=== PATIENT | male | born 1985 | race Caucasian/White ===

== ENCOUNTER 2017-12-03 21:35 | Emergency (ER) | payer MEDICAID ==
[~2017-12-03 21:35] MED LIST: ALBU8.5H8 INH; CHLO25CA10 PO; NO HOME MEDS
== END 2017-12-03 22:24 | disposition left against medical advice (07) ==
LOC: ER 21:36
DX: Z53.21 Procedure and treatment not carried out due to patient leaving prior to being seen by health care provider (principal)

== ENCOUNTER 2017-12-19 15:34 | Emergency (ER) | payer MEDICAID ==
[2017-01-29 01:16] VITALS: BP_DIAS 77
[2017-12-19 15:50] VITALS: BP_SYST 149
== END 2017-12-19 16:15 | disposition left against medical advice (07) ==
LOC: ER 15:34
DX: Z53.21 Procedure and treatment not carried out due to patient leaving prior to being seen by health care provider (principal)

== ENCOUNTER 2020-02-13 06:43 | Inpatient (IN) | payer MEDICAID ==
[~2020-02-13] VITALS: Ht 175.3 cm; Wt 79.5 kg
[2020-02-13] MEDS ORDERED: sodium bicarbonate (8.4%) 1 mEq/ml syringe IV ONE (07:20)
[2020-02-13] MEDS ORDERED: calcium chloride 100 MG/1 ML inj IV ONE (07:20)
[2020-02-13 07:48] LABS: BASOPHILS # (AUTO) 0.1 X10'3 (0-0.2); BASOPHILS % (AUTO) 0.4 % (0-1); EOSINOPHILS # (AUTO) 0.1 X10'3 (0-0.9); EOSINOPHILS % (AUTO) 0.8 % (0-6); HEMATOCRIT 43.9 % (42.0-52.0); HEMOGLOBIN 15.1 g/dl (14.0-17.9); LYMPHOCYTES # (AUTO) 1.4 X10'3 (1.1-4.8); LYMPHOCYTES % (AUTO) 8.6 % (21-51); MEAN CORPUSCULAR HEMOGLOBIN 34.1 PG (27.0-31.0); MEAN CORPUSCULAR HGB CONC 34.3 g/dL (33.0-36.5); MEAN CORPUSCULAR VOLUME 99.4 FL (78-98); MONOCYTES # (AUTO) 2.6 X10'3 (0-0.9); MONOCYTES % (AUTO) 15.5 % (2-12); NEUTROPHILS # (AUTO) 12.5 X10'3 (1.8-7.7); NEUTROPHILS % (AUTO) 74.7 % (42-75); PLATELET COUNT 257 X10'3 (140-440); RED BLOOD COUNT 4.42 X10'6 (4.70-6.10); RED CELL DISTRIBUTION WIDTH 12.8 % (11.5-14.5); WHITE BLOOD COUNT 16.7 X10'3 (4.5-11.0)
--- NOTE | 2020-02-13 07:55 | NUR ---
ECHO AT BEDSIDE
[2020-02-13] MEDS ORDERED: iohexol 350MG/ML 100ml bottle IV ONE (07:57)
[2020-02-13 08:13] LABS: ALANINE AMINOTRANSFERASE 198 U/L (12-78); ALBUMIN 3.4 G/DL (3.4-5.0); ALBUMIN/GLOBULIN RATIO 0.8 (1.1-1.5); ALKALINE PHOSPHATASE 65 IU/L (46-116); ANION GAP 6 (8-16); ASPARTATE AMINO TRANSFERASE 52 U/L (10-37); BILIRUBIN,TOTAL 0.7 MG/DL (0.1-1.0); BLOOD UREA NITROGEN 13 MG/DL (7-18); BUN/CREATININE RATIO 19.4 (5.4-32.0); CHLORIDE 103 MMOL/L (99-107); CREATININE 0.67 MG/DL (0.60-1.10); GLUCOSE 104 MG/DL (70-104); POTASSIUM 3.9 MMOL/L (3.5-5.1); SODIUM 138 MMOL/L (135-145); TOTAL CARBON DIOXIDE 28.6 MMOL/L (24-32); TOTAL PROTEIN 7.6 G/DL (6.4-8.2); eGFR > 90 ML/MIN
--- NOTE | 2020-02-13 08:23 | NUR ---
Pt transported to CT via rpony with tech.
[2020-02-13 08:37] LABS: C-REACTIVE PROTEIN 3.04 MG/DL (0.0-0.5)
[2020-02-13 09:04] LABS: PLATELET ESTIMATE NORMAL; TOTAL CELLS COUNTED 100
[2020-02-13 10:34] LABS: URINE AMPHETAMINE SCREEN NEGATIVE (Neg); URINE BARBITUATE SCREEN NEGATIVE (Neg); URINE BENZODIAZEPINES SCREEN NEGATIVE (Neg); URINE CANNABINOID SCREEN POSITIVE (Neg); URINE COCAINE SCREEN NEGATIVE (Neg); URINE METHADONE SCREEN NEGATIVE (Neg); URINE OPIATE SCREEN NEGATIVE (Neg); URINE PHENCYCLIDINE SCREEN NEGATIVE (Neg)
[2020-02-13] MEDS ORDERED: normal saline 1000ML IV soln IVB ONE (11:35)
[2020-02-13] MEDS ORDERED: ondansetron/PF 4mg/2ml inj IV PRN ×2 (11:35→12:45)
[2020-02-13] MEDS: morphine 4 MG/ML inj SYRINge IV PRN ×2 (11:47→23:40)
[2020-02-13 11:55] LABS: LIPASE 71 U/L (73-393)
[2020-02-13] MEDS ORDERED: acetaminophen 325mg tablet PO PRN (12:45)
[2020-02-13] MEDS ORDERED: HYDROcodone/acetaminophen 5mg/325mg tablet PO PRN (12:45)
[2020-02-13] MEDS ORDERED: mag hydrox/Alum hydrox/simeth 30ml oral suspension PO PRN (12:45)
[2020-02-13] MEDS ORDERED: potassium CL 10mEq/100ml bag 100 ML IV PRN ×2 (12:45)
[2020-02-13] MEDS ORDERED: HYDROcodone/acetaminophen 10/325mg tab PO PRN (12:45)
[2020-02-13] MEDS ORDERED: magnesium 2GM in 50ml NS 50 ML IV PRN (12:45)
[2020-02-13] MEDS ORDERED: magnesium Cl slow-release 64mg tablet PO PRN (12:45)
[2020-02-13] MEDS ORDERED: magnesium hydroxide 30ml (MOM) UD suspension PO PRN (12:45)
[2020-02-13] MEDS ORDERED: diphenhydrAMINE 25mg capsule PO PRN (12:45)
[2020-02-13] MEDS ORDERED: levoFLOXACIN 750MG TABLET PO ONE (12:45)
[2020-02-13] MEDS ORDERED: potassium Cl 20 mEq SR tablet PO PRN ×2 (12:45)
[2020-02-13] MEDS ORDERED: magnesium 4gm in 100ml NS 100 ML IV PRN (12:45)
[2020-02-13] MEDS ORDERED: LORazepam 1 MG tablet PO PRN (13:10)
[2020-02-13] MEDS ORDERED: LORazepam 2 mg/ml vial IV PRN (13:10)
[2020-02-13] MEDS: predniSONE 20 mg tablet PO SCH ×2 (13:18→21:13)
--- NOTE | 2020-02-13 13:30 | NUR ---
Received patient report from CRISTOPHER Juarez from ED. Awaiting patient arrival to room 3028X.
--- NOTE | 2020-02-13 14:00 | NUR ---
Patient arrived to room 3025B via gurney. Patient vital signs temp. 99F, HR 70, RR 20, 95% on room air, BP 145/83, and pain 6/10. Bed locked and lowered, nonskid socks on, call light in reach, and in no acute distress.
[2020-02-13 14:12] VITALS: BP 145/83
[2020-02-13 18:00] VITALS: BP 129/73
--- NOTE | 2020-02-13 18:17 | NUR ---
Problems reprioritized. Patient report given, questions answered & plan of care reviewed with CRISTOPHER Baker. Patient stable at transfer of care.
--- NOTE | 2020-02-13 18:20 | NUR ---
Patient in room PCU 3025. I have received report from CRISTOPHER Rousseau and had the opportunity to ask questions and assume patient care.
[2020-02-13] MEDS: K and/or MAG REPLACEMENT MC SCH (18:24)
[2020-02-13 22:00] VITALS: BP 117/68
[2020-02-14 02:00] VITALS: BP 124/71
[2020-02-14 05:45] LABS: EOSINOPHILS % (AUTO) 0 % (0-6); MEAN PLATELET VOLUME 8.6 FL (7.4-10.4); PLATELET COUNT 295 X10'3 (140-440)
[2020-02-14 05:49] LABS: BASOPHILS # (AUTO) 0.2 X10'3 (0-0.2); BASOPHILS % (AUTO) 0.8 % (0-1); HEMATOCRIT 43.9 % (42.0-52.0); HEMOGLOBIN 15.2 g/dl (14.0-17.9); LYMPHOCYTES # (AUTO) 0.8 X10'3 (1.1-4.8); MEAN CORPUSCULAR HEMOGLOBIN 34.5 PG (27.0-31.0); MEAN CORPUSCULAR HGB CONC 34.7 g/dL (33.0-36.5); MEAN CORPUSCULAR VOLUME 99.3 FL (78-98); MONOCYTES # (AUTO) 1.4 X10'3 (0-0.9); MONOCYTES % (AUTO) 6.9 % (2-12); NEUTROPHILS # (AUTO) 18.5 X10'3 (1.8-7.7); NEUTROPHILS % (AUTO) 88.3 % (42-75); RED BLOOD COUNT 4.42 X10'6 (4.70-6.10); RED CELL DISTRIBUTION WIDTH 12.6 % (11.5-14.5); WHITE BLOOD COUNT 20.9 X10'3 (4.5-11.0)
[2020-02-14 06:00] LABS: ALANINE AMINOTRANSFERASE 143 U/L (12-78); ALBUMIN/GLOBULIN RATIO 0.6 (1.1-1.5); ALKALINE PHOSPHATASE 65 IU/L (46-116); ANION GAP 4 (8-16); ASPARTATE AMINO TRANSFERASE 30 U/L (10-37); BILIRUBIN,TOTAL 0.6 MG/DL (0.1-1.0); BLOOD UREA NITROGEN 16 MG/DL (7-18); BUN/CREATININE RATIO 19.5 (5.4-32.0); CALCIUM 9.3 MG/DL (8.5-10.1); CHLORIDE 103 MMOL/L (99-107); CREATININE 0.82 MG/DL (0.60-1.10); GLUCOSE 130 MG/DL (70-104); LIPASE 85 U/L (73-393); PHOSPHORUS 4.1 MG/DL (2.3-4.5); POTASSIUM 4.3 MMOL/L (3.5-5.1); SODIUM 138 MMOL/L (135-145); TOTAL CARBON DIOXIDE 30.7 MMOL/L (24-32); TOTAL PROTEIN 8.2 G/DL (6.4-8.2); eGFR > 90 ML/MIN
--- NOTE | 2020-02-14 06:27 | NUR ---
Patient in room PCU 3025. I have received report from CRISTOPHER Baker and had the opportunity to ask questions and assume patient care. Patient asleep in bed and in no acute distress.
[2020-02-14 07:00] VITALS: BP 129/75
--- NOTE | 2020-02-14 07:31 | NUR ---
Paged Dr. Sood regarding getting sputum and blood cultures ordered. PAGER ID: [phone] MESSAGE: [phone]. Kulwinder Waite. Would you like me to order sputum and blood cultures? Thank you. Onelia NICHOLAS x [phone]
[2020-02-14] MEDS ORDERED: folic acid 1mg tablet PO SCH (08:00)
[2020-02-14] MEDS ORDERED: multivitamins, therapeutics tablet PO SCH (08:00)
[2020-02-14] MEDS: K and/or MAG REPLACEMENT MC SCH (08:00)
[2020-02-14] MEDS ORDERED: thiamine 100mg tablet PO SCH (08:00)
[2020-02-14] MEDS ORDERED: nicotine 14mg patch - 24hr TD SCH (08:00)
[2020-02-14] MEDS: predniSONE 20 mg tablet PO SCH (09:09)
[2020-02-14] MEDS ORDERED: levoFLOXACIN 750MG TABLET PO SCH (11:00)
[2020-02-14] MEDS ORDERED: PRED20TA PO (13:00)
[2020-02-14] MEDS ORDERED: LEVO750T46 PO (13:00)
[2020-02-14] MEDS ORDERED: NICO-631 TD (13:00)
--- NOTE | 2020-02-14 13:30 | NUR ---
Patient stable for discharge per MD orders. All discharge instructions reviewed and all questions answered appropriately. Belongings collected and sent with patient. Patient will call to make follow up appointment with PCP. New prescriptions called in to [facility]. PIV discontinued and cannula intact. panel monitor discontinued. Patient ambulated to lobby and left via private vehicle.
== END 2020-02-14 13:30 | disposition home or self-care (01) | DRG 207 ==
LOC: ER 06:43 → ED HOLD 12:42 → PCU 3S 14:05
PROVIDERS: ADMIT Family Medicine; ATTEND Family Medicine
DX: I30.9 Acute pericarditis, unspecified (principal); J18.9 Pneumonia, unspecified organism; F17.210 Nicotine dependence, cigarettes, uncomplicated; R70.0 Elevated erythrocyte sedimentation rate; R74.0 Nonspecific elevation of levels of transaminase and lactic acid dehydrogenase [LDH]; R79.82 Elevated C-reactive protein (CRP); D72.823 Leukemoid reaction; F12.10 Cannabis abuse, uncomplicated; Z80.1 Family history of malignant neoplasm of trachea, bronchus and lung; Z83.3 Family history of diabetes mellitus; Z88.0 Allergy status to penicillin; Z71.6 Tobacco abuse counseling; Z72.89 Other problems related to lifestyle
CPT/HCPCS: 36415; 71045; 71275; 74174; 80053; 80305; 82948; 83605; 83690; 83735; 84100; 84484; 85025; 85651; 86140; 87040; 87081; 93005; 93306; 96361; 96374; 96375; 99285; G0378; J2270; J2405; J7030; J7512; Q9967

== ENCOUNTER 2021-06-16 10:54 | Day surgery (SDC) | payer MEDICAID ==
[2021-06-13 15:10] LABS: BASOPHILS % (AUTO) 0.5 % (0-1); EOSINOPHILS # (AUTO) 0.2 X10'3 (0-0.9); EOSINOPHILS % (AUTO) 2.7 % (0-6); LYMPHOCYTES # (AUTO) 1.7 X10'3 (1.1-4.8); MEAN CORPUSCULAR HEMOGLOBIN 33.8 PG (27.0-31.0); MEAN CORPUSCULAR HGB CONC 34.9 g/dL (33.0-36.5); MEAN CORPUSCULAR VOLUME 96.9 FL (78-98); MEAN PLATELET VOLUME 8.7 FL (7.4-10.4); MONOCYTES # (AUTO) 1.1 X10'3 (0-0.9); MONOCYTES % (AUTO) 17.7 % (2-12); NEUTROPHILS # (AUTO) 3.4 X10'3 (1.8-7.7); NEUTROPHILS % (AUTO) 52.1 % (42-75); PRE OP PLATELET COUNT 204 X10'3 (140-440); RED BLOOD COUNT 4.44 X10'6 (4.70-6.10)
[2021-06-13 15:29] LABS: ALBUMIN 3.6 G/DL (3.4-5.0); ALKALINE PHOSPHATASE 62 IU/L (46-116); BLOOD UREA NITROGEN 19 MG/DL (7-18); BUN/CREATININE RATIO 26.4 (5.4-32.0); CALCIUM 8.2 MG/DL (8.5-10.1); CHLORIDE 106 MMOL/L (99-107); CREATININE 0.72 MG/DL (0.60-1.10); PRE OP ALT 58 U/L (30-65); PRE OP ANION GAP 7 (8-16); PRE OP AST 24 U/L (10-37); PRE OP BILIRUB, TOTAL 0.2 MG/DL (0.0-1.0); PRE OP GLUCOSE 93 MG/DL (70-104); PRE OP POTASSIUM 3.8 MMOL/L (3.4-5.1); PRE OP SODIUM 140 MMOL/L (135-145); TOTAL CARBON DIOXIDE 26.9 MMOL/L (24-32); TOTAL PROTEIN 7.2 G/DL (6.4-8.2); eGFR > 90 ML/MIN
[2021-06-13 15:31] LABS: PLATELET ESTIMATE NORMAL; TOTAL CELLS COUNTED 100
[~2021-06-16] VITALS: Ht 175.3 cm; Wt 80.0 kg
[~2021-06-16 10:54] MED LIST changes: -ALBU8.5H8 INH; -CHLO25CA10 PO; +CLINDAMYCIN/D5W 900mg/50ml 50 ML IV ONE; +famotidine 20mg tablet PO ONE; +ringers solution, lacted 1,000 ML IV SCH; +vancomycin/NS 1 GM ADD-VANTAGE 250 ML X 1 DOSE IV ONE
[2021-06-16 11:23] VITALS: BP 128/82
[2021-06-16] MEDS ORDERED: triamcinolone acetonide 40mg/ml inj ONE (14:19)
[2021-06-16] MEDS ORDERED: BUPIVAcaine 0.5% inj/PF 60 ML ONE (14:19)
[2021-06-16] MEDS ORDERED: meperidine/PF 25mg/ml syringe IV PRN ×3 (15:35)
[2021-06-16] MEDS ORDERED: morphine 2 MG/ML inj. syringe IV PRN (15:35)
[2021-06-16] MEDS ORDERED: ondansetron/PF 4mg/2ml inj IV PRN (15:35)
[2021-06-16] MEDS ORDERED: proCHLORperazine 10 MG/2 ml inj IV PRN (15:35)
[2021-06-16] MEDS ORDERED: morphine 4 MG/ML inj SYRINge IV PRN (15:35)
[2021-06-16] MEDS ORDERED: ringers solution, lacted 1,000 ML IV SCH (15:35)
[2021-06-16] MEDS ORDERED: midazolam 1 mg/ML 2ml injection ONE (15:51)
[2021-06-16] MEDS ORDERED: fentaNYL /PF 50mcg/ml 5ml ampule ONE (15:52)
[2021-06-16] MEDS ORDERED: propofol inj 20 ML IV ONE (16:20)
[2021-06-16] MEDS ORDERED: acetaminophen 1,000mg/100ml IV 100 ML IV ONE (16:20)
[2021-06-16] MEDS ORDERED: ondansetron/PF 4mg/2ml inj ONE (16:20)
[2021-06-16] MEDS ORDERED: LIDOcaine 2% (20mg/ml) 5ml vial ONE (16:20)
[2021-06-16] MEDS ORDERED: dexamethasone sod phosphate 4mg/ml inj. ONE (16:20)
[2021-06-16] MEDS ORDERED: glycopyrrolate 0.2mg/ml inj ONE (16:21)
[2021-06-16] MEDS ORDERED: sevoflurane 250ml liquid IH ONE (16:30)
[2021-06-16] MEDS ORDERED: ketorolac trometh. 30mg/ml inj. ONE (17:42)
[2021-06-16 17:52] VITALS: BP 111/61
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
[2021-06-16 18:02] VITALS: BP 115/65
[2021-06-16 18:12] VITALS: BP 116/64
[2021-06-16 18:22] VITALS: BP 116/67
[2021-06-16 18:32] VITALS: BP 121/75
--- NOTE | 2021-06-16 18:42 | NUR ---
ALL DISCHARGE CRITERIA HAS BEEN MET. VSS, PAIN AT A TOLERABLE LEVEL, VOIDING AND ABLE TO SAFELY AMBULATE AND TRANSFER SELF. IV TAKEN OUT WITHOUT ANY COMPLICATIONS. ALL DISCHARGE INSTRUCTIONS COVERED WITH PATIENT AND ALL QUESTIONS ANSWERED. PATIENT TAKEN OUT VIA WHEELCHAIR TO PERSONAL VEHICLE WHERE FAMILY/FRIEND DROVE PATIENT HOME. Addendum: 06/16/21 at 1904 by Kevin Patricia RN, RN Amended: Links added.
== END 2021-06-16 18:42 | disposition home or self-care (01) ==
LOC: PAS 10:54
PROVIDERS: ATTEND Orthopaedic Surgery
DX: S83.231A Complex tear of medial meniscus, current injury, right knee, initial encounter (principal); S83.232A Complex tear of medial meniscus, current injury, left knee, initial encounter; S83.271A Complex tear of lateral meniscus, current injury, right knee, initial encounter; S83.272A Complex tear of lateral meniscus, current injury, left knee, initial encounter; M17.0 Bilateral primary osteoarthritis of knee; M94.261 Chondromalacia, right knee; M94.262 Chondromalacia, left knee; Z88.0 Allergy status to penicillin; Z88.1 Allergy status to other antibiotic agents; Z72.89 Other problems related to lifestyle; E66.8 Other obesity; Z68.26 Body mass index [BMI] 26.0-26.9, adult; F17.290 Nicotine dependence, other tobacco product, uncomplicated; Z20.822 Contact with and (suspected) exposure to COVID-19; Z79.899 Other long term (current) drug therapy; X58.XXXA Exposure to other specified factors, initial encounter; Y93.89 Activity, other specified; Y92.89 Other specified places as the place of occurrence of the external cause; Y99.8 Other external cause status
CPT/HCPCS: 29873; 29879; 29880; 80053; 82948; 85025; 87635; C9803; J0131; J1100; J1885; J2001; J2250; J2405; J2704; J3010; J3301; J3370; Z7506; Z7508; Z7512; 85007; A4215; A4618; A6250; A6449; A6455; A7000; J3490; J7120

== ENCOUNTER → 2021-08-14 | Emergency (ER) | payer MEDICAID ==
[~2021-08-14] VITALS: Ht 177.8 cm; Wt 84.1 kg
[~2021-08-14] MED LIST changes: -CLINDAMYCIN/D5W 900mg/50ml 50 ML IV ONE; -famotidine 20mg tablet PO ONE; -ringers solution, lacted 1,000 ML IV SCH; -vancomycin/NS 1 GM ADD-VANTAGE 250 ML X 1 DOSE IV ONE
[2021-08-14 03:34] VITALS: BP 125/83
== END ==
LOC: ER 02:50
DX: Z02.89 Encounter for other administrative examinations (principal); V98.8XXA Other specified transport accidents, initial encounter; Y93.89 Activity, other specified; Y92.89 Other specified places as the place of occurrence of the external cause; Y99.8 Other external cause status
CPT/HCPCS: 99283

== ENCOUNTER 2022-07-26 02:45 | Emergency (ER) | payer MEDICAID ==
[~2022-07-26] VITALS: Ht 177.8 cm; Wt 77.3 kg
[2022-07-26] MEDS ORDERED: NALO4SPR BOTHNARES (05:20)
[2022-07-26 05:32] VITALS: BP 119/72
== END 2022-07-26 05:35 | disposition home or self-care (01) ==
LOC: ER 02:46
DX: T40.601A Poisoning by unspecified narcotics, accidental (unintentional), initial encounter (principal); R11.10 Vomiting, unspecified; F17.200 Nicotine dependence, unspecified, uncomplicated; F15.90 Other stimulant use, unspecified, uncomplicated; F19.90 Other psychoactive substance use, unspecified, uncomplicated; Z72.89 Other problems related to lifestyle; Z88.0 Allergy status to penicillin; Z79.899 Other long term (current) drug therapy; Y92.89 Other specified places as the place of occurrence of the external cause
CPT/HCPCS: 99283

== ENCOUNTER 2023-09-26 23:33 | Emergency (ER) | payer MEDICAID ==
[~2023-09-26] VITALS: Ht 175.3 cm; Wt 83.4 kg
[~2023-09-26 23:33] MED LIST changes: +NALO4SPR BOTHNARES
[2023-09-27 01:01] VITALS: TEMP 99.3
[2023-09-27] MEDS ORDERED: ibuprofen tablet 400 MG TABLET PO ONE (01:05)
[2023-09-27] MEDS ORDERED: ibuprofen tablet 400 MG TABLET ONE (01:10)
[2023-09-27] MEDS ORDERED: aspirin 81mg tab.chew PO ONE (01:15)
--- NOTE | 2023-09-27 01:24 | NUR ---
PT VINOD UPGRADED TO LEVEL 2 DUE TO VITALS, EKG PRESENTATION
[2023-09-27 01:54] LABS: BASOPHILS % (AUTO) 0.1 % (0-1); EOSINOPHILS % (AUTO) 0 % (0-6); HEMATOCRIT 43.2 % (42.0-52.0); HEMOGLOBIN 14.7 g/dl (14.0-17.9); LYMPHOCYTES # (AUTO) 0.9 X10'3 (1.1-4.8); LYMPHOCYTES % (AUTO) 4.7 % (21-51); MEAN CORPUSCULAR HEMOGLOBIN 34.2 PG (27.0-31.0); MEAN CORPUSCULAR HGB CONC 34.1 g/dL (33.0-36.5); MEAN CORPUSCULAR VOLUME 100.4 FL (78-98); MEAN PLATELET VOLUME 8.7 FL (7.4-10.4); MONOCYTES # (AUTO) 3.4 X10'3 (0-0.9); MONOCYTES % (AUTO) 18.2 % (2-12); NEUTROPHILS # (AUTO) 14.4 X10'3 (1.8-7.7); PLATELET COUNT 203 X10'3 (140-440); RED CELL DISTRIBUTION WIDTH 12.9 % (11.5-14.5); WHITE BLOOD COUNT 18.8 X10'3 (4.5-11.0)
[2023-09-27 02:14] LABS: ALANINE AMINOTRANSFERASE 34 U/L (12-78); ALBUMIN 3.1 G/DL (3.4-5.0); ALBUMIN/GLOBULIN RATIO 0.7 (1.1-1.5); ALKALINE PHOSPHATASE 55 IU/L (46-116); ANION GAP 11 (8-16); ASPARTATE AMINO TRANSFERASE 15 U/L (10-37); BILIRUBIN,TOTAL 1.1 MG/DL (0.1-1.0); BLOOD UREA NITROGEN 8 MG/DL (7-18); BUN/CREATININE RATIO 12.5 (10.0-20.0); CALCIUM 8.4 MG/DL (8.5-10.1); CHLORIDE 94 MMOL/L (99-107); CREATININE 0.64 MG/DL (0.60-1.10); GLUCOSE 121 MG/DL (70-104); MAGNESIUM 1.6 MG/DL (1.5-2.4); PRO BRAIN NATRIURETIC PEPTIDE 114 PG/ML (0-125); SODIUM 128 MMOL/L (135-145); TOTAL CARBON DIOXIDE 22.8 MMOL/L (24-32); TOTAL PROTEIN 7.4 G/DL (6.4-8.2); eCRCL 160 ML/MIN; eGFR > 90 ML/MIN
[2023-09-27] MEDS ORDERED: potassium Cl 20 mEq SR tablet PO STA (02:25)
[2023-09-27 02:57] LABS: PLATELET ESTIMATE NORMAL; TOTAL CELLS COUNTED 100
[2023-09-27] MEDS ORDERED: AZIT500T9 PO (04:07)
[2023-09-27 04:16] VITALS: BP 145/90; PULSE 88; RESP 18; O2SAT 98
--- NOTE | 2023-09-27 04:25 | NUR ---
PT REQUESTING FIRST DOSE ORAL [facility] MAY BE CLOSED IN MORNING. RECIEVED VERBAL ORER FOR AZITHROMYACIN 500MG PO
[2023-09-27] MEDS ORDERED: azithromycin 250mg tablet PO ONE (04:30)
== END 2023-09-27 04:22 | disposition home or self-care (01) ==
LOC: ER 23:35
DX: J20.9 Acute bronchitis, unspecified (principal); Z20.822 Contact with and (suspected) exposure to COVID-19; F15.10 Other stimulant abuse, uncomplicated; E87.6 Hypokalemia; Z88.0 Allergy status to penicillin
CPT/HCPCS: 36415; 71045; 80053; 83735; 83880; 84484; 85007; 85025; 87502; 87503; 87634; 87811; 93005; 99285

== ENCOUNTER → 2025-07-23 | Emergency (ER) | payer MEDICAID ==
[~2025-07-23] VITALS: Ht 175.3 cm; Wt 72.0 kg
[~2025-07-23] MED LIST changes: +AZIT500T9 PO
[2025-07-23 18:49] VITALS: BP 122/87; PULSE 98; TEMP 99; O2SAT 99
[2025-07-23 18:50] VITALS: RESP 16
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
--- NOTE | 2025-07-23 19:13 | RADIOLOGY REPORT ---
CLINICAL HISTORY: KNEE PAIN TECHNIQUE: 3 views of the right knee were obtained. COMPARISON: None FINDINGS: No acute fracture or dislocation is seen. There is a small joint effusion. There are mild tricompartmental degenerative changes with osteophyte formation. There is an old healed fracture deformity of the proximal fibular shaft. IMPRESSION: Small joint effusion. No acute fracture seen.
== END ==
LOC: ER 18:37
DX: Z00.00 Encounter for general adult medical examination without abnormal findings (principal); M25.561 Pain in right knee; F15.90 Other stimulant use, unspecified, uncomplicated; Z88.0 Allergy status to penicillin
CPT/HCPCS: 73564; 99283